=== PATIENT | female | born 1985 | race Caucasian/White ===

== ENCOUNTER → 2021-07-06 | Outpatient (CLI) | payer BC ==
--- NOTE | 2021-07-06 21:19 | REP ---
INDICATION: PELVIC PAIN,PAINFUL MENSTRATION COMPARISON: None. TECHNIQUE: Transabdominal pelvic ultrasound followed by transvaginal examination for better evaluation of the endometrium and adnexa with color Doppler evaluation of the ovaries. FINDINGS: Bladder is unremarkable and measures 9.3 x 9.7 x 8.3 cm. Retroverted heterogeneous uterus measures 7.0 x 3.8 x 5.9 cm with heterogeneous pattern suspicious for underlying adenomyosis.. The endometrial complex measures 10 mm thickness. Right ovary is normal in appearance and vascularity without evidence for torsion. Right ovary measures 2.6 x 1.9 x 2.5 cm. R I = 0.38. Left ovary is not identified likely due to high position and bowel gas. R I = . No pelvic fluid or adnexal mass lesion. IMPRESSION: Heterogeneous uterus suggesting underlying adenomyosis. Normal right ovary. Left ovary not visualized. <Electronically signed by Kaz Garcia > 07/06/21 [id number]
== END ==
LOC: M RAD 17:03
PROVIDERS: ATTEND Advanced Practice Midwife
DX: R10.2 Pelvic and perineal pain (principal); N92.0 Excessive and frequent menstruation with regular cycle; N94.6 Dysmenorrhea, unspecified; N85.4 Malposition of uterus

== ENCOUNTER 2021-07-25 22:59 | Emergency (ER) | payer BC ==
[~2021-07-25] VITALS: Ht 175.3 cm; Wt 72.8 kg
[2021-07-25 23:02] VITALS: BP 109/69
== END 2021-07-25 23:59 | disposition left against medical advice (07) ==
LOC: M ED 22:59
DX: Z53.21 Procedure and treatment not carried out due to patient leaving prior to being seen by health care provider (principal)

== ENCOUNTER 2022-12-21 10:02 | Emergency (ER) | payer OTHER ==
[~2022-12-21] VITALS: Ht 170.2 cm; Wt 87.7 kg
[~2022-12-21 10:02] MED LIST: ACET-1349 PO; CITA10TA7 PO; HYDR-643 PO
[2022-12-21] MEDS ORDERED: PHEN1TAB73 (10:26)
[2022-12-21] MEDS ORDERED: IBUP200C25 PO (10:26)
[2022-12-21] MEDS ORDERED: CLON0.2T (10:26)
[2022-12-21] MEDS ORDERED: CIPR500T39 (10:26)
[2022-12-21] MEDS ORDERED: PHEN15CA6 (10:26)
[2022-12-21] MEDS ORDERED: NS 1,000 ML IV ONE (11:40)
[2022-12-21] MEDS ORDERED: ACETAMINOPHEN 1000MG 100ML IV BAG IV ONE (11:40)
[2022-12-21 12:03] LABS: BASO % 0.3 % (0.0-1.0); EOS # 0.2 10^3/uL (0.0-0.5); EOS % 2.1 % (0.0-3.0); HEMATOCRIT 45.9 % (36.0-47.0); LYMPH # 2.6 10^3/uL (1.5-5.0); LYMPH % 25.5 % (24.0-44.0); MEAN CORPUSCULAR HEMOGLOBIN 31.6 pg (27.0-33.0); MEAN CORPUSCULAR HGB CONC 32.7 g/dl (32.0-36.5); MEAN CORPUSCULAR VOLUME 96.8 fl (80.0-96.0); MONO # 0.6 10^3/uL (0.0-0.8); MONO % 5.9 % (2.0-8.0); NEUTROPHILS # 6.7 10^3/uL (1.5-8.5); NEUTROPHILS % 65.9 % (36.0-66.0); PLATELET COUNT, AUTOMATED 351 10^3/uL (150-450); RED BLOOD COUNT 4.74 10^6/uL (4.00-5.40); WHITE BLOOD COUNT 10.1 10^3/uL (4.0-10.0)
[2022-12-21 13:16] VITALS: BP 127/73; TEMP 98.9; O2SAT 97
[2022-12-21] MEDS ORDERED: COLA1TAB PO (13:20)
[2022-12-21] MEDS ORDERED: MIRA3350 PO (13:20)
[2022-12-21 14:03] LABS: LIPASE 28 U/L (12-53)
[2022-12-21 14:05] LABS: ALKALINE PHOSPHATASE 66 U/L (46-116); ALT/SGPT 19 U/L (7.0-40); AST/SGOT < 8 U/L (<34); BILIRUBIN,DIRECT < 0.1 MG/DL (<0.4); BILIRUBIN,TOTAL 0.3 MG/DL (0.3-1.2); TOTAL PROTEIN 6.9 G/DL (5.7-8.2)
== END 2022-12-21 14:19 | disposition home or self-care (01) ==
LOC: M ED 10:02
DX: K59.00 Constipation, unspecified (principal); Z87.442 Personal history of urinary calculi; Z87.448 Personal history of other diseases of urinary system; F41.9 Anxiety disorder, unspecified; F32.A Depression, unspecified; F17.200 Nicotine dependence, unspecified, uncomplicated; Z79.899 Other long term (current) drug therapy; Z88.0 Allergy status to penicillin; Z88.2 Allergy status to sulfonamides; Z88.5 Allergy status to narcotic agent; Z91.012 Allergy to eggs
CPT/HCPCS: 74176; 80047; 80076; 81000; 81015; 83690; 85025; 87086; 96361; 96374; 99284; J0131

== ENCOUNTER → 2023-10-26 | Outpatient (CLI) | payer BC ==
[~2023-10-26] MED LIST changes: +CIPR500T39; +CLON0.2T; +COLA1TAB PO; +IBUP200C25 PO; +MIRA3350 PO; +PHEN15CA6; +PHEN1TAB73
[2023-10-26 07:46] LABS: BASO % 0.5 % (0.0-1.0); EOS # 0.3 10^3/uL (0.0-0.5); EOS % 3.2 % (0.0-3.0); HEMATOCRIT 42.4 % (36.0-47.0); HEMOGLOBIN 14.6 g/dl (12.0-15.5); LYMPH # 2.5 10^3/uL (1.5-5.0); LYMPH % 30.7 % (24.0-44.0); MEAN CORPUSCULAR HEMOGLOBIN 32.7 pg (27.0-33.0); MEAN CORPUSCULAR HGB CONC 34.4 g/dl (32.0-36.5); MEAN CORPUSCULAR VOLUME 94.9 fl (80.0-96.0); MONO # 0.6 10^3/uL (0.0-0.8); MONO % 7.1 % (2.0-8.0); NEUTROPHILS # 4.8 10^3/uL (1.5-8.5); NEUTROPHILS % 58.1 % (36.0-66.0); PLATELET COUNT, AUTOMATED 312 10^3/uL (150-450); RED BLOOD COUNT 4.47 10^6/uL (4.00-5.40); WHITE BLOOD COUNT 8.2 10^3/uL (4.0-10.0)
[2023-10-26 08:00] LABS: HEMOGLOBIN A1c 4.9 % (4.0-6.0)
[2023-10-26 08:13] LABS: ALBUMIN 3.7 G/DL (3.2-5.2); ALKALINE PHOSPHATASE 74 U/L (46-116); ALT/SGPT 40 U/L (7.0-40); AST/SGOT 24 U/L (<34); BILIRUBIN,TOTAL 0.5 MG/DL (0.3-1.2); BLOOD UREA NITROGEN 8 MG/DL (9-23); CALCIUM LEVEL 9.4 MG/DL (8.5-10.1); CARBON DIOXIDE LEVEL 26 MMOL/L (20-31); CHLORIDE LEVEL 104 MMOL/L (98-107); CHOLESTEROL LEVEL 229 MG/DL (<200); CHOLESTEROL RISK RATIO 6.04 (<5); CREATININE FOR GFR 0.47 MG/DL (0.55-1.30); GLOMERULAR FILTRATION RATE > 60.0 (>60); GLUCOSE, FASTING 85 MG/DL (60-100); HDL CHOLESTEROL 37.9 MG/DL (>40); IRON (FE) 182 UG/DL (50-170); LDL CHOLESTEROL 147.9 MG/DL (<100); NON-HDL-C 191.1 MG/DL; PERCENT SATURATION 59.1 % (13.2-45.0); POTASSIUM SERUM 4.2 MMOL/L (3.5-5.1); SODIUM LEVEL 136 MMOL/L (136-145); TOTAL IRON BINDING CAPACITY 308 UG/DL (250-425); TOTAL PROTEIN 6.8 G/DL (5.7-8.2); TRIGLYCERIDES LEVEL 216 MG/DL (<150)
[2023-10-26 08:17] LABS: FREE T3 3.1 PG/ML (2.3-4.2); VITAMIN B12 LEVEL 430 PG/ML (211-911)
[2023-10-26 08:18] LABS: FREE T4 0.84 NG/DL (0.89-1.76); THYROID STIMULATING HORMONE 1.386 uIU/ML (0.55-4.78)
[2023-10-26 08:19] LABS: TESTOSTERONE 26 NG/DL (14-76)
[2023-10-26 08:20] LABS: ESTRADIOL 54.6 PG/ML
== END ==
LOC: M LAB 07:21
PROVIDERS: ATTEND Nurse Practitioner Family
DX: Z00.00 Encounter for general adult medical examination without abnormal findings (principal); F41.9 Anxiety disorder, unspecified; F32.A Depression, unspecified; E66.9 Obesity, unspecified; G47.00 Insomnia, unspecified

== ENCOUNTER 2024-02-22 09:42 | Emergency (ER) | payer BC ==
[~2024-02-22] VITALS: Ht 170.2 cm; Wt 185.0 kg
[2024-02-22] MEDS ORDERED: LAMI50TA PO (09:52)
[2024-02-22] MEDS: NS 1,000 ML IV ONE (13:14)
[2024-02-22 13:32] LABS: BASO % 0.3 % (0.0-1.0); EOS # 0.1 10^3/uL (0.0-0.5); EOS % 1.4 % (0.0-3.0); HEMATOCRIT 43.1 % (36.0-47.0); HEMOGLOBIN 14.9 g/dl (12.0-15.5); LYMPH # 1.4 10^3/uL (1.5-5.0); LYMPH % 39.1 % (24.0-44.0); MEAN CORPUSCULAR HEMOGLOBIN 32.8 pg (27.0-33.0); MEAN CORPUSCULAR HGB CONC 34.6 g/dl (32.0-36.5); MEAN CORPUSCULAR VOLUME 94.9 fl (80.0-96.0); MONO # 0.3 10^3/uL (0.0-0.8); NEUTROPHILS # 1.7 10^3/uL (1.5-8.5); NEUTROPHILS % 49.9 % (36.0-66.0); PLATELET COUNT, AUTOMATED 216 10^3/uL (150-450); RED BLOOD COUNT 4.54 10^6/uL (4.00-5.40); WHITE BLOOD COUNT 3.5 10^3/uL (4.0-10.0)
[2024-02-22 13:50] LABS: THYROID STIMULATING HORMONE 1.704 uIU/ML (0.55-4.78); THYROXINE (T4) 6.7 UG/DL (4.5-10.9)
[2024-02-22 13:54] LABS: ALBUMIN 3.6 G/DL (3.2-5.2); ALKALINE PHOSPHATASE 59 U/L (46-116); ALT/SGPT 25 U/L (7.0-40); AST/SGOT 30 U/L (<34); BILIRUBIN,TOTAL < 0.2 MG/DL (0.3-1.2); BLOOD UREA NITROGEN < 5 MG/DL (9-23); CALCIUM LEVEL 8.7 MG/DL (8.5-10.1); CARBON DIOXIDE LEVEL 26 MMOL/L (20-31); CHLORIDE LEVEL 105 MMOL/L (98-107); CREATININE FOR GFR 0.41 MG/DL (0.55-1.30); FREE THYROXINE INDEX 1.8 % (1.3-4.8); GLOMERULAR FILTRATION RATE > 60.0 (>60); GLUCOSE, FASTING 85 MG/DL (60-100); MAGNESIUM LEVEL 1.9 MG/DL (1.8-2.4); POTASSIUM SERUM 4.3 MMOL/L (3.5-5.1); SODIUM LEVEL 137 MMOL/L (136-145); T UPTAKE 26.2 % (22.5-37.0)
[2024-02-22 15:24] LABS: CORTISOL PM 5.8 UG/DL (3.1-16.7)
[2024-02-22 16:25] VITALS: BP 118/76; TEMP 97.6; O2SAT 100
== END 2024-02-22 16:30 | disposition home or self-care (01) ==
LOC: M ED 09:42
DX: B34.8 Other viral infections of unspecified site (principal); F41.9 Anxiety disorder, unspecified; F32.A Depression, unspecified; F17.200 Nicotine dependence, unspecified, uncomplicated; Z88.0 Allergy status to penicillin; Z88.2 Allergy status to sulfonamides; Z88.5 Allergy status to narcotic agent; Z91.012 Allergy to eggs; Z79.899 Other long term (current) drug therapy; Z79.1 Long term (current) use of non-steroidal anti-inflammatories (NSAID)